=== PATIENT | male | born 1995 | race Caucasian/White ===

== ENCOUNTER 2018-11-07 09:06 | Observation (INO) | payer OTHER ==
[~2018-11-07] VITALS: Ht 160 cm; Wt 59.0 kg
--- NOTE | 2018-11-07 09:06 | NUR ---
Patient BIBA ACLS accompanied by Saturnino SEGURA, transferred to bed 8. RN evaluating patient at bedside.
[2018-11-07 09:08] VITALS: BP 123/79
--- NOTE | 2018-11-07 09:27 | NUR ---
ENDORSED PT TO ELECTRONIC MASKING SYSTEM OPERATOR NURSE. PT HAS NO SIGNS OF DISTRESS. Addendum: 11/07/18 at 1999 by Aurea Anders RN CLARIFICATION: INCORRECT DOCUMENTATION TIME. CORRECT TIME IS 1926.
--- NOTE | 2018-11-07 09:36 | NUR ---
Patient taken to CT scan/XRAY via gurney by jina.
--- NOTE | 2018-11-07 09:42 | NUR ---
PT. TAKEN TO CT
--- NOTE | 2018-11-07 09:52 | NUR ---
Patient returned from CT scan. RN re-evaluating patient at bedside.
--- NOTE | 2018-11-07 10:11 | NUR ---
PT IS ORIENTED TO NAME PLACE TIME BUT MAINTAINS OFF THE TOPIC BEHAVIOR/SUBJECT;; RESTLESS, UNABLE TO REMAIN STILL. CONSTANT REDIRECTION REQUIRED, CHAPPED LIPS NOTED PT WILL NOT ANSWER WHEN QUESTIONED OF DRUG INGESTION. WILL CONTINUE TO OBSERVE AND MONITOR FOR CHANGES. SEIZURE PADS IN PLACE
--- NOTE | 2018-11-07 10:11 | NUR ---
STRAIGHT CATH WRITTEN---PT ACCEPTED WITH MINIMAL DISCOMFORT STATED BY HIM.
[2018-11-07 10:16] LABS: BASOPHILS % (AUTO) 0.3 % (0.0-2.0); EOSINOPHILS % (AUTO) 0.1 % (0.0-4.0); HEMATOCRIT 50.6 % (36-52); HEMOGLOBIN 17.3 g/dL (12.0-18.0); LYMPHOCYTES # (AUTO) 1.8 K/uL (2.0-11.5); LYMPHOCYTES % (AUTO) 28.9 % (20.5-51.1); MEAN CORPUSCULAR HEMOGLOBIN 29 pg (27-31); MEAN CORPUSCULAR HGB CONC 34 g/dL (33-37); MEAN CORPUSCULAR VOLUME 84.4 fL (80-94); MONOCYTES # (AUTO) 0.5 K/uL (0.8-1.0); MONOCYTES % (AUTO) 7.9 % (1.7-9.3); NEUTROPHILS # (AUTO) 3.9 K/uL (1.8-7.7); NEUTROPHILS % (AUTO) 62.8 % (42.2-75.2); PLATELET COUNT (AUTO) 203 K/uL (140-450); RED BLOOD CELL COUNT(AUTO) 5.99 MIL/uL (4.20-6.10); RED CELL DISTRIBUTION WIDTH 12.4 % (11.6-13.7); WHITE BLOOD COUNT (AUTO) 6.3 K/uL (4.8-10.8)
[2018-11-07] MEDS ORDERED: NACL 0.9% 1,000 ML IV ONE (10:20)
--- NOTE | 2018-11-07 10:26 | NUR ---
Dr. Farr evaluating patient at bedside.
[2018-11-07 10:59] LABS: APPEARANCE,URINE CLEAR (CLEAR); BILIRUBIN,URINE NEGATIVE (NEGATIVE); BLOOD, URINE NEGATIVE (NEGATIVE); COLOR,URINE YELLOW (YELLOW); LEUKOCYTE ESTERASE ,URINE NEGATIVE (NEGATIVE); NITRITE, URINE NEGATIVE (NEGATIVE); UGLUCOSE NEGATIVE (NEGATIVE)
[2018-11-07 11:07] LABS: BARBITURATE, URINE NEG. ng/ml (NEG <=200); BENZODIAZEPINE, URINE NEG. ng/mL (NEG <=200); CANNABINOID, URINE NEG. ng/mL (NEG <=50); COCAINE, URINE NEG. ng/mL (NEG <=300); OPIATE, URINE NEG. ng/mL (NEG <=2000); PHENCYCLIDINE SCREEN,URINE NEG. ng/mL (NEG <=25)
[2018-11-07 11:27] LABS: ANION GAP 18.4 (8-16); ASPARTATE AMINOTRANSFERASE 15 U/L (15-37); CARBON DIOXIDE 24.9 mmol/L (21-32); CHLORIDE 99 mmol/L (98-107); GFR ARICAN-AMERICAN 119 mL/min (>90); GLUCOSE 87 mg/dL (74-106); POTASSIUM 3.3 mmol/L (3.5-5.1); SODIUM SERUM 139 mmol/L (136-145); UREA NITROGEN, BLOOD 15 mg/dL (7-18)
[2018-11-07 11:37] LABS: RBC,URINE NONE SEEN /HPF (0-5); WBC,URINE 0-5 /HPF (0-5)
[2018-11-07 11:39] LABS: ACETAMINOPHEN < 0.5 ug/ml (10-30); SALICYLATE < 2.8 mg/dL (2.8-20.0)
[2018-11-07] MEDS ORDERED: LORazepam 2 MG/ML VIAL IVP PRN (12:40)
[2018-11-07] MEDS ORDERED: ONDANSETRON 4 MG/2 ML VIAL IVP PRN (12:40)
[2018-11-07] MEDS ORDERED: MORPHINE SULFATE 2 MG/ML SYR IVP PRN (12:40)
[2018-11-07] MEDS ORDERED: HYDROcodone/APAP 5/325 MG 1 TAB TAB PO PRN (12:40)
[2018-11-07] MEDS ORDERED: ACETAMINOPHEN 325 MG TAB PO PRN (12:40)
--- NOTE | 2018-11-07 13:53 | NUR ---
Dr. Villegas evaluating patient at bedside.
[2018-11-07 14:20] VITALS: BP 113/69
--- NOTE | 2018-11-07 14:20 | NUR ---
RECEIVED REPORT FROM ED NURSE. PT IS AOX1. UNABLE TO ANSWER ADMISSION QUESTIONS AT THIS TIME, PT MUMBLES, SPEECH NOT CLEAR. RESPIRATIONS EVEN AND UNLABORED ON RA. ACTIVE BS, ABDOMEN SOFT. IV ON LT FA 20 GA AND RT AC 18 ON SALINE LOCK, FLUSHING WITH NO RESISTANCE. PT GAIT IS UNSTEADY. REVIEWED POC WITH PT, PT VERBALIZED UNDERSTANDING.
--- NOTE | 2018-11-07 14:32 | NUR ---
Patient will be admitted to care of DR. DE LA CRUZ. Admited to TELEMETRY Will go to room. Belongings list completed. Report to .
--- NOTE | 2018-11-07 14:40 | NUR ---
RECEIVED CALL FROM DR. DE LA CRUZ, PHYSICIAN AWARE OF LACTIC ACID LEVEL. NO NEW ORDERS RECEIVED.
[2018-11-07] MEDS: NACL 0.9% 1,000 ML IV SCH (16:00)
--- NOTE | 2018-11-07 16:00 | NUR ---
STARTED IVF PER ORDER, LT FA IV FLUSHING WITH NO RESISTANCE. PT HAS NO SIGNS OF DISTRESS AT THIS TIME. CONTINUES TO HAVE MUMBLED SPEECH.
--- NOTE | 2018-11-07 19:00 | NUR ---
RECEIVED PT FROM DAY SHIFT NURSE LITHUANIAN SPEAKER AAOX2 CONFUSED, PT QUIET NOT AGRESSSIVE , FOLLOW COMMADS IV ON LEFT FA INFUSING WELL , ON TELEMETRY SR ,RELATIVES AT BED SIDE INITAL ASSESSMENT DONE
[2018-11-07 20:00] VITALS: BP 130/66
--- NOTE | 2018-11-07 21:30 | NUR ---
RELATIVES AT BED SIDE PT CONFUSED NOT AGITATION, ON TELEMETRY SR
[2018-11-08] VITALS: BP 111/55
--- NOTE | 2018-11-08 | NUR ---
PT VOIDING WELL ON URINAL DENIES ANY PAIN GETTING SLEEP ON TELEMETRY SR, NOT AGITATION NOT DISTRESS NOTED .
[2018-11-08] MEDS: NACL 0.9% 1,000 ML IV SCH ×3 (01:42→11:00)
[2018-11-08 04:00] VITALS: BP 107/40
--- NOTE | 2018-11-08 04:00 | NUR ---
SPONGE BATH GIVEN LINEN CHANGED IV ;ON LEFT FA INFUSING WELL ON TELEMETERY SB, PT DENIES ANY PAIN , PT CONFUSED
--- NOTE | 2018-11-08 06:56 | NUR ---
PT RELATIVES WANT PT CONTINUE REHABILITATION WHEN PT IS DISCHARGE DOCTOR WILL BE NOTIFY
--- NOTE | 2018-11-08 06:57 | NUR ---
PT WILL BE ENDORSED TO DAY SHIFT NURSE FOR CONTINUITY OF CARE, KPT STILL ;CONFUSED AAOX2 AND HE IS POSS FOR ANPHETAMINES IN URINE
--- NOTE | 2018-11-08 07:12 | NUR ---
REPORT RECEIVED FROM STUDIO GRIP NURSE AT BEDSIDE FOR CONTINUITY OF CARE. PATIENT AWAKE AND ALERT, SPEAKS LUXEMBOURGISH AND KOREAN. RESPIRATIONS EVEN AND UNLABORED ON ROOM AIR, NO S/S OF DISTRESS OR SOB NOTED. PATIENT DENIES PAIN. IV SITE ON RAC INTACT, ASYMPTOMATIC, AND SALINE LOCKED. IV SITE ON LFA 20G INFUSING NS AT 100 ML/HR WELL. UPDATED PLAN OF CARE WITH PATIENT, HE VERBALIZED UNDERSTANDING. SAFETY PRECAUTIONS IN PLACE, CALL LIGHT WITHIN REACH, WILL CONTINUE TO MONITOR PATIENT.
[2018-11-08 07:23] LABS: BASOPHILS % (AUTO) 0.4 % (0.0-2.0); EOSINOPHILS % (AUTO) 0.9 % (0.0-4.0); HEMATOCRIT 43.8 % (36-52); HEMOGLOBIN 14.7 g/dL (12.0-18.0); LYMPHOCYTES # (AUTO) 2.2 K/uL (2.0-11.5); LYMPHOCYTES % (AUTO) 42.9 % (20.5-51.1); MEAN CORPUSCULAR HEMOGLOBIN 29 pg (27-31); MEAN CORPUSCULAR HGB CONC 34 g/dL (33-37); MEAN CORPUSCULAR VOLUME 85.9 fL (80-94); MONOCYTES # (AUTO) 0.5 K/uL (0.8-1.0); MONOCYTES % (AUTO) 10.4 % (1.7-9.3); NEUTROPHILS # (AUTO) 2.4 K/uL (1.8-7.7); NEUTROPHILS % (AUTO) 45.4 % (42.2-75.2); PLATELET COUNT (AUTO) 169 K/uL (140-450); RED BLOOD CELL COUNT(AUTO) 5.11 MIL/uL (4.20-6.10); RED CELL DISTRIBUTION WIDTH 12.8 % (11.6-13.7); WHITE BLOOD COUNT (AUTO) 5.2 K/uL (4.8-10.8)
[2018-11-08 07:44] LABS: ANION GAP 11.6 (8-16); CARBON DIOXIDE 27.4 mmol/L (21-32); CREATININE 0.9 mg/dL (0.7-1.3)
[2018-11-08 08:00] VITALS: BP 115/71
--- NOTE | 2018-11-08 08:05 | NUR ---
PATIENT SITTING UP IN BED EATING BREAKFAST, NO COMPLAINTS AT THIS TIME. VS WNL. WILL CONTINUE TO MONITOR PATIENT.
--- NOTE | 2018-11-08 08:42 | NUR ---
PATIENT HAS BEEN SCREENED AND CATEGORIZED LOW NUTRITION RISK. PATIENT WILL BE SEEN WITHIN 7 DAYS OF ADMISSION. 11/12/[address]
--- NOTE | 2018-11-08 11:00 | NUR ---
NS 1000 ML IVF FINISHED, NEW BAG OF NS 1000 ML @ 100 ML/HR STARTED. PATIENT TOLERATING IT WELL. MOTHER KD MACEDO AT BEDSIDE. NO COMPLAINTS AT THIS TIME. WILL CONTINUE TO MONITOR PATIENT.
[2018-11-08 12:00] VITALS: BP 108/68
--- NOTE | 2018-11-08 12:45 | NUR ---
PT AMBULATED TO BATHROOM WITH ASSIST FROM LIVESTOCK NUTRITIONIST. PT HAD BM. NO C/O OF PAIN, NO S/S OF DISTRESS OR SOB NOTED AT THIS TIME. WILL CONTINUE TO MONITOR PATIENT.
[2018-11-08 16:00] VITALS: BP 113/52
--- NOTE | 2018-11-08 16:02 | NUR ---
DR DE LA CRUZ IN TO SEE THE PATIENT, BROTHER JABARI AT BEDSIDE. WILL WAIT FOR HIS EVALUATION AND ORDERS.
--- NOTE | 2018-11-08 16:15 | NUR ---
Charge Nurse Jaylyn contacted MANDY to speak to patient and patient's brother Antonio Hayes [phone]. MANDY went over substance abuse resources with patient and Antonio. Patient gave consent to speak to Antonio. Antonio requested information for rehabilitation centers contracted with patient's insurance. MANDY suggested that patient calls [facility] in order to arrange for substance abuse services and mental health services per Antonio's request. Antonio requested to put his contact information [phone] and his father Jamel Hayes [phone] for patient's emergency contact. MANDY actively listened to Antonio regarding concerns for patient. MANDY validated Antonio's feelings and provided Antonio GALVAN's direct line if further assistance is needed. Antonio verbalized appreciation. MANDY will follow up as needed.
--- NOTE | 2018-11-08 16:35 | NUR ---
DISCHARGE ORDER IN. SPOKE TO JABARI, PATIENT'S BROTHER, ABOUT DISCHARGE TIME. 1830, AFTER DINNER, AN AGREEABLE TIME FOR PATIENT TO BE DISCHARGED HOME. PT RESTING IN BED, NO S/S OF DISTRESS NOTED, WILL CONTINUE TO MONITOR PATIENT.
--- NOTE | 2018-11-08 18:00 | NUR ---
DISCHARGE INSTRUCTIONS AND EDUCATION GIVEN TO PATIENT AND HIS BROTHER JABARI. PATIENT COOPERATIVE BUT INATTENTIVE. REFERRAL TO REHAB CENTER GIVEN BY SOIL TECHNOLOGIST. PATIENT NOW SITTING UP AND EATING DINNER. AFTER DINNER, PATIENT WILL BE DISCHARGED HOME WITH HIS BROTHER. WILL CONTINUE TO MONITOR PATIENT.
--- NOTE | 2018-11-08 18:45 | NUR ---
IVS REMOVED, IV CATHETERS INTACT, MINIMAL BLEEDING NOTED. TELE MONITOR REMOVED. PATIENT REFUSED FOR ID BANDS TO BE CUT, CLINICAL WRITER DESI AWARE. PATIENT HAD NO SHIFT, PAGED SECURITY FOR PANTS AND SHIRT FOR PATIENT. WILL WAIT FOR PATIENT TO FINISH CHANGING TO BE DISCHARGED HOME.
--- NOTE | 2018-11-08 18:55 | NUR ---
PATIENT WHEELED OFF FLOOR WITH BROTHER AND MOTHER AT SIDE. PATIENT IN STABLE CONDITION. PATIENT TOOK ALL HIS BELONGINGS WITH HIM.
--- NOTE | 2018-11-10 10:18 | NUR ---
CONTACTED PATIENT'S PCP (MARK HAMMOND) AT [phone], SPOKE TO MARLO. SHE PROVIDED ME WITH Wednesday AT 1300. CONTACTED PATIENT'S BROTHER JABARI MACEDO AT [phone], PROVIDED HIM WITH THE ADDRESS AND PHONE NUMBER OF THE PCP'S CLINIC, ABLE TO VERBALIZE UNDERSTANDING.
== END 2018-11-08 18:55 | disposition home or self-care (01) ==
LOC: MED 09:06 → MTU 12:42
PROVIDERS: ADMIT Internal Medicine Pulmonary Disease; ATTEND Internal Medicine Pulmonary Disease
DX: R41.82 Altered mental status, unspecified (principal); J45.909 Unspecified asthma, uncomplicated; I10 Essential (primary) hypertension; G40.909 Epilepsy, unspecified, not intractable, without status epilepticus; F15.10 Other stimulant abuse, uncomplicated; G92 Toxic encephalopathy; T43.621A Poisoning by amphetamines, accidental (unintentional), initial encounter
CPT/HCPCS: 36415; 70450; 71045; 80048; 80053; 80305; 81001; 82140; 83605; 85025; 87040; 87081; 87086; 93005; 96360; 96361; 99285; C1758; G0378; G0480; G0482; J7030

== ENCOUNTER 2019-05-26 20:53 | Emergency (ER) | payer OTHER ==
[~2019-05-26] VITALS: Ht 162.6 cm; Wt 84.4 kg
[~2019-05-26 20:53] MED LIST: RIS1 PO
[2019-05-26 21:26] VITALS: BP 143/83
--- NOTE | 2019-05-26 21:29 | NUR ---
TO LOBBY A/W BED AMBULATORY
--- NOTE | 2019-05-26 21:36 | NUR ---
PT AMBULATED TO ER BED 07
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
--- NOTE | 2019-05-26 22:03 | NUR ---
DR. FRIEND AT BEDSIDE.
[2019-05-26] MEDS ORDERED: LORazepam 1 MG TAB PO ONE (22:10)
[2019-05-26 22:30] VITALS: BP 143/83
--- NOTE | 2019-05-26 22:30 | NUR ---
Patient discharged with v/s stable. Written and verbal after care instructions given and explained. Patient verbalized understanding. Ambulatory with steady gait. All questions addressed prior to discharge. Advised to follow up with PMD. PT DID NOT SIGN DC PAPER WORKED AND WALKED OUT WITHOUT PAPERWORK.
[2019-05-26 22:39] LABS: BARBITURATE, URINE NEG. ng/ml (NEG <=200); CANNABINOID, URINE NEG. ng/mL (NEG <=50); COCAINE, URINE NEG. ng/mL (NEG <=300); OPIATE, URINE NEG. ng/mL (NEG <=2000); PHENCYCLIDINE SCREEN,URINE NEG. ng/mL (NEG <=25)
[2019-05-26 23:03] LABS: BENZODIAZEPINE, URINE NEGATIVE ng/mL (NEG <=200)
== END 2019-05-26 22:30 | disposition home or self-care (01) ==
LOC: MED 20:53
DX: R10.11 Right upper quadrant pain (principal); R11.2 Nausea with vomiting, unspecified; R19.7 Diarrhea, unspecified; I10 Essential (primary) hypertension; F17.210 Nicotine dependence, cigarettes, uncomplicated; Z79.899 Other long term (current) drug therapy
CPT/HCPCS: 80305; 99283; 99284

== ENCOUNTER 2020-02-17 20:59 | Emergency (ER) | payer OTHER | END 2020-02-17 21:12 | disposition left against medical advice (07) | LOC: MED 20:59 | DX: Z53.21 Procedure and treatment not carried out due to patient leaving prior to being seen by health care provider (principal) ==

== ENCOUNTER 2020-05-21 08:22 | Emergency (ER) | payer OTHER ==
[~2020-05-21] VITALS: Ht 162.6 cm; Wt 65.5 kg
[2020-05-21 08:28] VITALS: BP 120/83
--- NOTE | 2020-05-21 08:34 | NUR ---
PATIENT AMBULATED TO BED 1.
--- NOTE | 2020-05-21 08:35 | NUR ---
BIB SELF FOR HIGH BLOOD PRESSURE MED REFILL AND C/O COUGH X 3 DAYS, DIARRHEA X YESTERDAY. SISTER HAD COVID TESTED POSITIVE LAST MONTH. O2 SAT 97%, BP 120/83 AT THIS TIME. PT STATED HE HAD DIARRHEA 3 TIMES TODAY. PMH: HTN, SEIZURE
[2020-05-21 09:30] VITALS: BP 110/62
--- NOTE | 2020-05-21 09:34 | NUR ---
Patient discharged with v/s stable. Written and verbal after care instructions given and explained. Patient verbalized understanding. Ambulatory with steady gait. All questions addressed prior to discharge. Advised to follow up with PMD.
== END 2020-05-21 09:34 | disposition home or self-care (01) ==
LOC: MED 08:22
DX: I10 Essential (primary) hypertension (principal); R19.7 Diarrhea, unspecified; F15.90 Other stimulant use, unspecified, uncomplicated; Z76.0 Encounter for issue of repeat prescription; Z79.899 Other long term (current) drug therapy
CPT/HCPCS: 99281

== ENCOUNTER 2020-05-29 11:20 | Emergency (ER) | payer OTHER ==
[~2020-05-29] VITALS: Ht 162.6 cm; Wt 58.5 kg
[2020-05-29 11:23] VITALS: BP 97/49
--- NOTE | 2020-05-29 11:25 | NUR ---
patient ambulated to bed 6 with steady/even gait.
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
--- NOTE | 2020-05-29 11:37 | NUR ---
Dr. Maldonado is evaluating patient at bedside.
--- NOTE | 2020-05-29 11:50 | NUR ---
FAX TO [facility] SENT AT THIS TIME REQUESTING MEDICAL RECORDED FOR 05-28-20
[2020-05-29] MEDS ORDERED: NACL 0.9% 1,000 ML IV ONE (12:00)
--- NOTE | 2020-05-29 12:00 | NUR ---
EKG at bedside.
--- NOTE | 2020-05-29 12:06 | NUR ---
Lab at bedside
--- NOTE | 2020-05-29 12:15 | NUR ---
Patient presents with both eyes closed in semi rogers's position. Equal chest rise and fall, no distress noted. manager of allied health services in place, bed locked in lowest position, side rails x1 and call light within reach.
[2020-05-29 12:18] LABS: BASOPHILS % (AUTO) 0.5 % (0.0-2.0); EOSINOPHILS % (AUTO) 0.5 % (0.0-4.0); HEMATOCRIT 45.7 % (36-52); HEMOGLOBIN 15.7 g/dL (12.0-18.0); LYMPHOCYTES # (AUTO) 1.4 K/uL (2.0-11.5); LYMPHOCYTES % (AUTO) 25.4 % (20.5-51.1); MEAN CORPUSCULAR HEMOGLOBIN 29 pg (27-31); MEAN CORPUSCULAR HGB CONC 34 g/dL (33-37); MEAN CORPUSCULAR VOLUME 84.2 fL (80-94); MONOCYTES # (AUTO) 0.4 K/uL (0.8-1.0); NEUTROPHILS # (AUTO) 3.5 K/uL (1.8-7.7); NEUTROPHILS % (AUTO) 65.6 % (42.2-75.2); PLATELET COUNT (AUTO) 204 K/uL (140-450); RED BLOOD CELL COUNT(AUTO) 5.42 MIL/uL (4.20-6.10); RED CELL DISTRIBUTION WIDTH 12.5 % (11.6-13.7); WHITE BLOOD COUNT (AUTO) 5.4 K/uL (4.8-10.8)
--- NOTE | 2020-05-29 13:05 | NUR ---
Urine specimen collected from urinal. Specimen walked to lab and handed to Graciela hinkle
[2020-05-29 13:12] LABS: APPEARANCE,URINE CLEAR (CLEAR); BILIRUBIN,URINE NEGATIVE (NEGATIVE); BLOOD, URINE NEGATIVE (NEGATIVE); COLOR,URINE YELLOW (YELLOW); LEUKOCYTE ESTERASE ,URINE NEGATIVE (NEGATIVE); NITRITE, URINE NEGATIVE (NEGATIVE); UGLUCOSE NEGATIVE (NEGATIVE)
--- NOTE | 2020-05-29 13:12 | NUR ---
computer service technician transported pt to CT via gurney.
[2020-05-29 13:14] LABS: ALBUMIN 4.1 g/dL (3.4-5.0); ANION GAP 15.3 (8-16); ASPARTATE AMINOTRANSFERASE 20 U/L (15-37); CARBON DIOXIDE 23.5 mmol/L (21-32); CHLORIDE 103 mmol/L (98-107); CREATININE 0.9 mg/dL (0.6-1.3); GFR ARICAN-AMERICAN 132 mL/min (>90); GLUCOSE 79 mg/dL (74-106); POTASSIUM 3.8 mmol/L (3.5-5.1); SODIUM SERUM 138 mmol/L (136-145); TOTAL BILIRUBIN 1.8 mg/dL (0.0-1.0); UREA NITROGEN, BLOOD 15 mg/dL (7-18)
[2020-05-29 13:16] LABS: ACETAMINOPHEN < 0.5 ug/ml (10-30); SALICYLATE < 2.8 mg/dL (2.8-20.0)
[2020-05-29 13:16] LABS: RBC,URINE 0-5 /HPF (0-5); WBC,URINE 0-5 /HPF (0-5)
--- NOTE | 2020-05-29 13:19 | NUR ---
Patient returned from CT via gurney. Patient placed back on quality assurance monitor body, bed locked in lowest position, side rails x1 and call light within reach.
--- NOTE | 2020-05-29 13:26 | NUR ---
Patient given a lunch sack per patient's request. All needs met at this time.
[2020-05-29 13:39] LABS: BARBITURATE, URINE NEGATIVE ng/ml (NEG <=200); BENZODIAZEPINE, URINE NEGATIVE ng/mL (NEG <=200); CANNABINOID, URINE NEGATIVE ng/mL (NEG <=50); COCAINE, URINE NEGATIVE ng/mL (NEG <=300); OPIATE, URINE NEGATIVE ng/mL (NEG <=2000); PHENCYCLIDINE SCREEN,URINE NEGATIVE ng/mL (NEG <=25)
[2020-05-29 14:24] VITALS: BP 97/61
--- NOTE | 2020-05-29 14:24 | NUR ---
Patient discharged with v/s stable. Written and verbal after care instructions given and explained. Patient verbalized understanding. Carried with steady gait. All questions addressed prior to discharge. Advised to follow up with PMD.
== END 2020-05-29 11:25 | disposition home or self-care (01) ==
LOC: MED 11:20
DX: R07.9 Chest pain, unspecified (principal); I10 Essential (primary) hypertension; Z79.899 Other long term (current) drug therapy; V03.00XA Pedestrian on foot injured in collision with car, pick-up truck or van in nontraffic accident, initial encounter; Y93.89 Activity, other specified; Y92.89 Other specified places as the place of occurrence of the external cause; Y99.8 Other external cause status
CPT/HCPCS: 36415; 70450; 71045; 80053; 80305; 81001; 82550; 84484; 85025; 96360; 99285; G0480; G0482; 93005

== ENCOUNTER 2020-08-13 21:54 | Emergency (ER) | payer BC, MEDICAID ==
[~2020-08-13] VITALS: Ht 152.4 cm; Wt 54.4 kg
[2020-08-13 21:59] VITALS: BP 137/78
--- NOTE | 2020-08-13 21:59 | NUR ---
TO BED AMBULATORY
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
--- NOTE | 2020-08-13 22:20 | NUR ---
Dr. Perez examining patient.
[2020-08-13 23:00] VITALS: BP 137/78
== END 2020-08-13 23:06 | disposition home or self-care (01) ==
LOC: MED 21:54
DX: F22 Delusional disorders (principal); F15.10 Other stimulant abuse, uncomplicated; F11.90 Opioid use, unspecified, uncomplicated; I10 Essential (primary) hypertension; Z79.899 Other long term (current) drug therapy
CPT/HCPCS: 99281

== ENCOUNTER 2020-09-20 17:56 | Emergency (ER) | payer BC, MEDICAID ==
[~2020-09-20] VITALS: Ht 165.1 cm; Wt 67.6 kg
[2020-09-20 18:05] VITALS: BP 137/66
--- NOTE | 2020-09-20 18:06 | NUR ---
PATIENT AMBULATED TO [facility]
[2020-09-20] MEDS ORDERED: KETOROLAC 30 MG/ML VIAL IM ONE (18:25)
--- NOTE | 2020-09-20 18:35 | NUR ---
PT AMBULATED TO BED 09.
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
[2020-09-20] MEDS ORDERED: METH750T5 PO (18:49)
[2020-09-20] MEDS ORDERED: LIDO1ADH47 TP (18:49)
[2020-09-20] MEDS ORDERED: NAPR-54 PO (18:49)
[2020-09-20 18:59] VITALS: BP 137/66
--- NOTE | 2020-09-20 19:00 | NUR ---
Patient discharged with v/s stable. Written and verbal after care instructions given BACK PAIN and explained. Patient alert, oriented and verbalized understanding of instructions. Ambulatory with steady gait. All questions addressed prior to discharge. ID band removed. Patient advised to follow up with PMD. Rx of LIDOCAINE PATH DAILY FOR 7DAYS ROBAXIN 750MG PO TID PRN INFLAMMATION, AND NAPROXEN 500M GPO BID PRN PAIN given. Patient educated on indication of medication including possible reaction and side effects. Opportunity to ask questions provided and answered.
== END 2020-09-20 18:59 | disposition home or self-care (01) ==
LOC: MED 17:56
DX: M54.5 Low back pain (principal); I10 Essential (primary) hypertension; Z79.899 Other long term (current) drug therapy; V89.2XXA Person injured in unspecified motor-vehicle accident, traffic, initial encounter; Y93.89 Activity, other specified; Y92.89 Other specified places as the place of occurrence of the external cause; Y99.8 Other external cause status
CPT/HCPCS: 99283; J1885

== ENCOUNTER 2020-10-05 17:32 | Emergency (ER) | payer BC, MEDICAID ==
[~2020-10-05] VITALS: Ht 167.6 cm; Wt 66.7 kg
[~2020-10-05 17:32] MED LIST changes: +LIDO1ADH47 TP; +METH750T5 PO; +NAPR-54 PO
[2020-10-05 17:43] VITALS: BP 117/61
[2020-10-05] MEDS ORDERED: KETOROLAC 60 MG/2 ML VIAL IM ONE (18:15)
--- NOTE | 2020-10-05 18:15 | NUR ---
25/M presents to ED with c/o headache since last night. Patient states he has been out in the sun and states he has had worsening headache since last night. Describes it as 10/10 sharp constant pain, states he did not take anything for pain prior to arrival to ED. Patient denies neck pain, dizziness, states left eye feels "blurry." Patient denies chest pain or shortness of breath, speaking in full clear sentences, alert and oriented x4.
[2020-10-05] MEDS ORDERED: IBUP-2213 PO (18:21)
[2020-10-05 18:44] VITALS: BP 117/61
--- NOTE | 2020-10-05 18:45 | NUR ---
Patient discharged with v/s stable. Written and verbal after care instructions given and explained. Patient alert, oriented and verbalized understanding of instructions. Ambulatory with steady gait. All questions addressed prior to discharge. ID band removed. Patient advised to follow up with PMD. Rx of Ibuprofen given. Patient educated on indication of medication including possible reaction and side effects. Opportunity to ask questions provided and answered. Patient provided with sandwich and juice upon discharge.
== END 2020-10-05 18:45 | disposition home or self-care (01) ==
LOC: MED 17:32
DX: R51.9 Headache, unspecified (principal); I10 Essential (primary) hypertension; Z79.899 Other long term (current) drug therapy
CPT/HCPCS: 96372; 99283; J1885

== ENCOUNTER 2021-01-06 20:42 | Emergency (ER) | payer BC, MEDICAID ==
[~2021-01-06] VITALS: Ht 162.6 cm; Wt 68.0 kg
[~2021-01-06 20:42] MED LIST changes: +IBUP-2213 PO
[2021-01-06 20:59] VITALS: BP 116/75
--- NOTE | 2021-01-07 01:21 | NUR ---
PT AMBULATED TO BED 4
[2021-01-07 01:33] VITALS: BP 120/77
--- NOTE | 2021-01-07 01:57 | NUR ---
PT TO A/W IN LOBBY FOR PENDING RESULTS
--- NOTE | 2021-01-07 03:22 | NUR ---
PATIENT LEFT PRIOR TO RECIEVING D/C PAPERWORK.
== END 2021-01-07 03:22 | disposition home or self-care (01) ==
LOC: MED 20:42
DX: R04.2 Hemoptysis (principal); I10 Essential (primary) hypertension; Z79.1 Long term (current) use of non-steroidal anti-inflammatories (NSAID); Z79.899 Other long term (current) drug therapy
CPT/HCPCS: 36415; 71045; 85379; 99284

== ENCOUNTER 2023-04-07 17:52 | Emergency (ER) | payer MEDICAID ==
[~2023-04-07] VITALS: Ht 167.6 cm; Wt 59.0 kg
[2023-04-07 18:16] VITALS: BP 124/67; PULSE 89; RESP 18; TEMP 97.8; O2SAT 98
== END 2023-04-07 22:58 | disposition left against medical advice (07) ==
LOC: MED 17:52
DX: R41.0 Disorientation, unspecified (principal); Z53.21 Procedure and treatment not carried out due to patient leaving prior to being seen by health care provider
CPT/HCPCS: 99281